=== PATIENT | male | born 1985 | race Caucasian/White ===

== ENCOUNTER 2020-10-28 06:41 | Emergency (ER) | payer BC ==
[2020-10-28 07:26] VITALS: BP 153/108; PULSE 84
--- NOTE | 2020-10-28 07:35 | EDM.PDOC ---
ED HPI GENERAL MEDICAL PROBLEM - General Chief Complaint: Upper Extremity Injury/Pain Stated Complaint: / WRIST POPPED DOING PT Time Seen by Provider: 10/28/20 07:34 Source of Information: Reports: Patient, RN, RN Notes Reviewed History Limitations: Reports: No Limitations - History of Present Illness INITIAL COMMENTS - FREE TEXT/NARRATIVE: Pt presents to ER with c/o right wrist and elbow pain. Pt states he is at [facility] for training, and this morning while doing push-ups in PT his right wrist popped. Since then he reports pain at the right wrist which he rates 3-4/10 at rest. He demonstrates that he is able to freely flex the right wrist, but has sharp pain in the dorsum of the right hand and wrist with attempted extension of the wrist. With extension of the right wrist he reports pain that radiates to the right elbow. Denies fall or any blunt or twisting trauma. Denies any history of previous right wrist injury. Onset: Today, Sudden Duration: Constant Location: Reports: Upper Extremity, Right Quality: Reports: Ache, Sharp Severity: Moderate Improves with: Reports: Immobilization, Rest Worsens with: Reports: Movement Context: Reports: Exercise Associated Symptoms: Reports: No Other Symptoms Right Elbow Pain Score (Numeric/FACES): 3 - Related Data Allergies Allergy/AdvReac Type Severity Reaction Status Date / Time No Known Allergies Allergy Verified 10/28/20 07:29 Home Meds: Home Meds . [No Known Home Meds] 11/22/14 [History] Past Medical History Other HEENT History: wears glasses Social & Family History - Tobacco Use Tobacco Use Status *Q: Current Every Day Tobacco User Years of Tobacco use: 15 Packs/Tins Daily: 1 - Caffeine Use Caffeine Use: Reports: Soda - Recreational Drug Use Recreational Drug Use: No - Living Situation & Occupation Living situation: Reports: with Family Occupation: Employed Review of Systems - Review of Systems Review Of Systems: Comprehensive ROS is negative, except as noted in HPI. ED EXAM, GENERAL - Physical Exam Exam: See Below Exam Limited By: No Limitations General Appearance: Alert, WD/WN, No Apparent Distress Throat/Mouth: Normal Voice Respiratory/Chest: No Respiratory Distress Cardiovascular: Normal Peripheral Pulses Extremities: Non-Tender, Normal Capillary Refill, Arm Pain (Right wrist pain with ROM, no visible swelling, bruising, redness, or deformity.). No: Joint Swelling Neurological: Alert, Oriented, No Motor/Sensory Deficits Psychiatric: Normal Affect, Normal Mood Skin Exam: Warm, Dry, Intact, Normal Color, No Rash Course - Vital Signs Last Recorded V/S: Last Vital Signs Temp 97.5 F 10/28/20 07:04 Pulse 84 10/28/20 07:04 Resp 16 10/28/20 07:04 BP 153/108 H 10/28/20 07:04 Pulse Ox 96 10/28/20 07:04 - Orders/Labs/Meds Orders: Active Orders 24 hr Category Date Time Status Elbow Min 3V Rt [CR] Stat Exams 10/28/20 07:43 Taken Wrist Comp Min 3V Rt [CR] Stat Exams 10/28/20 07:43 Taken DME for Discharge [COMM] Routine Oth 10/28/20 08:25 Ordered - Radiology Interpretation Free Text/Narrative:: XR Right Wrist & Right Elbow: no acute fractures or dislocations, see Radiologist's report. Departure - Departure Time of Disposition: 08:28 Disposition: Home, Self-Care 01 Condition: Good Clinical Impression: Sprain of carpal joint of right wrist, initial encounter - Discharge Information *PRESCRIPTION DRUG MONITORING PROGRAM REVIEWED*: Not Applicable *COPY OF PRESCRIPTION DRUG MONITORING REPORT IN PATIENT AQUILES: Not Applicable Instructions: Wrist Sprain, Adult Forms: ED Department Discharge Additional Instructions: Rest and ice pack to right wrist to reduce pain. Wear right wrist splint for 7 to 10 days. Over the counter Ibuprofen (Motrin/Advil) as needed for pain. Follow directions on label for dosing and precautions. Follow up with your primary clinic in 7 to 10 days for recheck. Sepsis Event Note (ED) - Evaluation Sepsis Screening Result: No Definite Risk - Focused Exam Vital Signs: Vital Signs Temp Pulse Resp BP Pulse Ox 10/28/20 07:04 97.5 F 84 16 153/108 H 96 - My Orders Last 24 Hours: My Active Orders 10/28/20 07:43 Elbow Min 3V Rt [CR] Stat Wrist Comp Min 3V Rt [CR] Stat 10/28/20 08:25 DME for Discharge [COMM] Routine - Assessment/Plan Last 24 Hours: My Active Orders 10/28/20 07:43 Elbow Min 3V Rt [CR] Stat Wrist Comp Min 3V Rt [CR] Stat 10/28/20 08:25 DME for Discharge [COMM] Routine
--- NOTE | 2020-10-28 08:32 | CR ---
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 Views: 3 or more views. COMPARISON: No relevant prior studies available. FINDINGS: Bones/joints: There is no evidence of acute fracture or dislocation. No significant narrowing of the joint spaces. No lytic or blastic lesions. Soft tissues: No radiopaque foreign body within the soft tissues. IMPRESSION: No acute findings appreciated.
--- NOTE | 2020-10-28 08:33 | CR ---
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 Views: 3 or more views. COMPARISON: No relevant prior studies available. FINDINGS: Bones/joints: Negative ulnar variance is present. There is no evidence of acute fracture or dislocation. No significant narrowing of the joint spaces. No lytic or blastic lesions. Soft tissues: No radiopaque foreign body within the soft tissues. IMPRESSION: No acute findings appreciated.
== END 2020-10-28 08:45 | disposition home or self-care (01) ==
LOC: DL.ED 06:41
DX: S63.511A Sprain of carpal joint of right wrist, initial encounter (principal); Z72.0 Tobacco use; X50.0XXA Overexertion from strenuous movement or load, initial encounter; Y93.B2 Activity, push-ups, pull-ups, sit-ups; Y99.1 Military activity
CPT/HCPCS: 73080-RT; 73110-RT; 99282; 99283-25